=== PATIENT | female | born 1945 | race Caucasian/White ===

== ENCOUNTER 2017-02-23 13:19 | Emergency (ER) | payer MEDICARE, BC, SELFPAY | END 2017-02-23 15:46 | disposition home or self-care (01) | PROVIDERS: Emergency Provider Emergency Medicine; Visit Provider Emergency Medicine | DX: J45.901 Unspecified asthma with (acute) exacerbation (principal); I10 Essential (primary) hypertension; K21.9 Gastro-esophageal reflux disease without esophagitis; E03.9 Hypothyroidism, unspecified | CPT/HCPCS: 71020; 80053; 83605; 85025; 87040; 87070; 87430; 87804; 94640; 96361; 96365; 96367; 96375; 99285 ==

== ENCOUNTER → 2019-10-26 15:59 | Outpatient (CLI) | payer MEDICARE, SELFPAY ==
[2019-10-28 17:18] LABS: Covid-19 Nasal PCR Sendout UK Not Detected
== END ==
PROVIDERS: Visit Provider Nurse Practitioner Family
DX: Z03.818 Encounter for observation for suspected exposure to other biological agents ruled out (principal)
CPT/HCPCS: U0003

== ENCOUNTER 2020-06-25 09:13 | Observation (INO) | payer MEDICARE, SELFPAY ==
[2020-06-25] VITALS (24 sets, daily range): BP systolic 128–169; BP diastolic 67–90; PULSE 82–94; RESP 16–18; TEMP 36.8–37.2; O2SAT 76–100; BMI 28.8; BMI 29.6
--- NOTE | 2020-06-25 09:26 | ECG_ITS ---
APPROVED REPORT Exam: Resting ECG HR:89 bpm ECG Measurements Heart Rate 89 AXES TN 158 P 45 QRSd 118 QRS 94 QT 408 T 5 QTc 496 Conclusion Normal sinus rhythm Low voltage QRS Right bundle branch block Cannot rule out Inferior infarct, age undetermined Abnormal ECG Electronically signed by : Aurelio Stallings, 06/26/2020 21:20:45
--- NOTE | 2020-06-25 09:42 | CT_ITS ---
PROCEDURE INFORMATION: Exam: CT Abdomen And Pelvis Without Contrast Exam date and time: 06/25/2020 9:42 AM Age: 74 years old Clinical indication: Abdominal pain; Epigastric; Patient HX: Stomach pain with diarrhea; Additional info: Diarrhea, pain TECHNIQUE: Imaging protocol: Computed tomography of the abdomen and pelvis without contrast. Radiation optimization: All CT scans at this facility use at least one of these dose optimization techniques: automated exposure control; mA and/or kV adjustment per patient size (includes targeted exams where dose is matched to clinical indication); or iterative reconstruction. COMPARISON: ABDPEL CT abdomen pelvis w con 08/27/2018 9:19 PM FINDINGS: Mediastinal space: There is moderate size hiatal hernia. Liver: The liver is normal in appearance, without evidence of mass or intrahepatic bile duct dilatation. Gallbladder and bile ducts: The gallbladder is incompletely distended. Pancreas: There is a cystic mass in the head of the pancreas that measures approximately 4.7 x 4.9 x 4.2 cm on axial image 33 and coronal image 32. There may be a more subtle mass in the body of the pancreas that measures 1.5 cm on axial image 32. Spleen: Normal. No splenomegaly. Adrenal glands: There is a fatty mass in the right adrenal gland that measures 1.3 cm on axial image 23. There may be a fatty mass in the left adrenal gland that measures approximately 1.2 cm on axial image 25. Kidneys and ureters: There is a punctate nonobstructing calculus in the right kidney. Stomach and bowel: The terminal ileum and cecum are within normal limits. There are multiple diverticula in the descending and sigmoid colon. Appendix: No evidence of appendicitis. Intraperitoneal space: Unremarkable. No free air. No significant fluid collection. Vasculature: Unremarkable. No abdominal aortic aneurysm. Lymph nodes: Unremarkable. No enlarged lymph nodes. Urinary bladder: Unremarkable as visualized. Reproductive: Unremarkable as visualized. Bones/joints: Unremarkable. No acute fracture. Soft tissues: Unremarkable. IMPRESSION: 1. Cystic mass in the head of the pancreas, and less well-defined mass in the body of the pancreas. These findings are most concerning for primary pancreatic neoplasia. Clinical correlation is recommended. 2. Moderate size hiatal hernia. 3. Bilateral adrenal adenomas. 4. Findings were discussed with MIGUELITO HAYS at 06/25/2020 11:08 AM EDT. COMMENTS: Consistent with the [employer]'s Incidental Findings Committee white paper (J Am Katey Radiol 2017): For any incidental adrenal lesion greater than 1 cm but less than 4 cm classified in this report as benign, likely benign, or containing fat (including classification as an adenoma or myelolipoma), no follow-up imaging is recommended per consensus recommendations based on imaging criteria. Further lab evaluation could be pursued if warranted based on clinical findings.
--- NOTE | 2020-06-25 09:46 | HMH.EDNVD ---
ED Disposition Clinical Impression: Pancreatic mass Acute pancreatitis Qualifiers: Pancreatitis type: idiopathic Acute pancreatitis complication: no infection or necrosis Qualified Code(s): K85.00 - Idiopathic acute pancreatitis without necrosis or infection Disposition: Admitted As Inpatient Condition on Discharge: Fair Instructions: DI for Diarrhea and Traveler's Diarrhea -- Adult, DI for Diarrhea and Traveler's Diarrhea -- Child, DI for Nausea -- Adult, DI for Nausea -- Child Referrals: Dana Kahn APRN [Primary Care Provider] - - Critical Care Critical Care Time: No Attestation: On , the high probability of a clinically significant, sudden or life threatening deterioration of the following system(s) required my full and direct attention, intervention and personal management. The time I documented below is in addition to time spent performing reported procedures but includes the following listed in this critical care notation. Medical Decision Making - Medical Records Medical records reviewed: Yes: I reviewed the patient's medical records. - Ha[place] Inquiry Pt receiving controlled substance: Yes Ha[place] was queried for this patient: Yes Reference #:: [id number] Risks and benefits of using a controlled substance: were discussed with pt by me Vital Signs: 06/25/20 09:14 06/25/20 09:30 06/25/20 10:00 Temperature 98.3 F Temperature Source Oral Pulse Rate 93 H 85 Pulse Rate [Right] 94 H Respiratory Rate 18 Blood Pressure 144/80 H 155/81 H Blood Pressure [Right Arm] 136/88 Blood Pressure Mean 101 111 Blood Pressure Mean [Right Arm] 104 02 Sat by Pulse Oximetry 98 94 L 99 Oxygen Delivery Method Room Air 06/25/20 12:51 06/25/20 13:01 06/25/20 13:30 Temperature Temperature Source Pulse Rate 93 H 85 90 Pulse Rate [Right] Respiratory Rate 18 Blood Pressure 144/79 H 151/71 H 130/70 Blood Pressure [Right Arm] Blood Pressure Mean 111 111 100 Blood Pressure Mean [Right Arm] 02 Sat by Pulse Oximetry 95 97 93 L Oxygen Delivery Method Room Air Room Air 06/25/20 14:00 06/25/20 14:30 06/25/20 15:00 Temperature Temperature Source Pulse Rate 86 92 H 90 Pulse Rate [Right] Respiratory Rate 18 Blood Pressure 128/68 152/90 H 142/74 H Blood Pressure [Right Arm] Blood Pressure Mean 94 110 108 Blood Pressure Mean [Right Arm] 02 Sat by Pulse Oximetry 95 100 91 L Oxygen Delivery Method Room Air Room Air 06/25/20 16:00 06/25/20 16:30 06/25/20 17:00 Temperature Temperature Source Pulse Rate 88 86 91 H Pulse Rate [Right] Respiratory Rate 16 16 Blood Pressure 135/68 149/83 H 151/83 H Blood Pressure [Right Arm] Blood Pressure Mean 107 102 105 Blood Pressure Mean [Right Arm] 02 Sat by Pulse Oximetry 100 100 95 Oxygen Delivery Method - Lab Data Lab Results 06/25/20 09:56: WBC 8.2, RBC 4.07 L, Hgb 11.9 L, Hct 36.7 L, MCV 90.0, MCH 29.1, MCHC 32.4, RDW 13.3, Plt Count 127 L, MPV 9.5, Neut % (Auto) 83.6 H, Lymph % (Auto) 11.3, [place] % (Auto) 4.3, Eos % (Auto) 0.4, Baso % (Auto) 0.4, Neut # (Auto) 6.8, Lymph # (Auto) 0.9, [place] # (Auto) 0.4, Eos # (Auto) 0.0, Baso # (Auto) 0.0 06/25/20 09:56: Sodium 137, Potassium 4.3, Chloride 107, Carbon Dioxide 19 L, Anion Gap 15.3 H, BUN 25 H, Creatinine 0.80, Estimated Creat Clear 57, Estimated GFR 70, Est GFR ( Amer) 85, Glucose 107 H, Calcium 9.0, Total Bilirubin 1.3, AST 16, ALT 11 L, Alkaline Phosphatase 85, Total Protein 7.0, Albumin 3.9, Globulin 3.1, Albumin/Globulin Ratio 1.3, Lipase 461 H, TSH < 0.02 L Result diagrams: 06/25/20 09:56 06/25/20 09:56 Orders (Tests/Meds): ED MEDICATIONS Generic Name Dose Route Start Last Admin Trade Name Freq PRN Reason Stop Dose Admin Sodium Chloride 1,000 mls @ 125 mls/hr 06/25/20 15:00 Sod Chlor 0.9% 1000ml Bag IV 07/25/20 14:59 .Q8H PRESTON Sodium Chloride 8 ml 06/25/20 11:58 06/25/20 12:19 Sodium Chloride 0.9% 10ml Vial
[2020-06-25 10:10] LABS: Basophils % 0.4 % (0.1-2.0); Chloride 107 mmol/L (98-107); Eosinophils % 0.4 % (0.1-12.0); Hematocrit 36.7 % (37.0-47.0); Hemoglobin 11.9 g/dL (12.2-16.2); Lymphocytes # 0.9 K/mm3 (0.7-4.5); Lymphocytes % 11.3 % (10-50); Mean Corpuscular HGB Conc 32.4 g/dL (31.8-35.4); Mean Corpuscular Hemoglobin 29.1 pg (27.0-31.2); Mean Platelet Volume 9.5 fl (7.4-10.4); Monocytes # 0.4 K/mm3 (0.1-1.0); Monocytes % 4.3 % (1.7-9.3); Neutrophils # 6.8 K/mm3 (1.8-7.8); Neutrophils % 83.6 % (37.0-80.0); Platelet Count 127 K/mm3 (142-424); Potassium 4.3 mmoL/L (3.5-5.1); Red Blood Count 4.07 M/mm3 (4.20-5.40); Red Cell Distribution Width 13.3 % (11.5-17.5); Sodium 137 mmol/L (136-145); White Blood Count 8.2 K/mm3 (4.8-10.8)
[2020-06-25 10:13] LABS: Alanine Aminotransferase 11 U/L (12-78); Albumin Level 3.9 g/dl (3.5-5.0); Albumin/Globulin Ratio 1.3 (1.1-1.8); Alkaline Phosphatase 85 U/L (38-126); Anion Gap 15.3 mEq/L (5-15); Aspartate Amino Transferase 16 U/L (14-36); Bilirubin,Total 1.3 mg/dl (0.2-1.3); Blood Urea Nitrogen 25 mg/dl (7-17); Carbon Dioxide 19 mmol/L (22.0-30.0); Creatinine Clearance Estimated 57 mL/min (50-200); Estimated Glomerular Filt Rate 70 ml/min (>60); GFR (African American) 85 ML/MIN (>60); Globulin 3.1 g/dL (1.3-3.2); Glucose 107 mg/dl (74-100); Lipase 461 U/L (23-300)
[2020-06-25 10:45] LABS: Thyroid Stimulating Hormone < 0.02 uIU/mL (0.465-4.68)
--- NOTE | 2020-06-25 11:05 | PC.NURSE ---
Dr Matthews is on with [facility]
--- NOTE | 2020-06-25 11:58 | PC.NURSE ---
Call to [facility] , pt is to be put on waiting list.
--- NOTE | 2020-06-25 12:13 | PC.NURSE ---
Dr Matthews spoke with Dr Aragon hospitalists at
--- NOTE | 2020-06-25 16:22 | PC.NURSE ---
placed call to [facility] spoke with Hilary, she advised still no rooms and wasnt able to project any hope for jennifer.
--- NOTE | 2020-06-25 17:35 | PC.NURSE ---
Dr Stallings paged 2nd time
--- NOTE | 2020-06-25 17:36 | PC.NURSE ---
Dr Stallings on with Dr Matthews.
--- NOTE | 2020-06-25 18:33 | PC.NURSE ---
Hilary from [facility] called advising they still didnt have any beds
--- NOTE | 2020-06-25 19:55 | PC.NURSE ---
Pt arrived to the unit. Pt introduced to staff an oriented to room
--- NOTE | 2020-06-25 20:37 | PC.NURSE ---
Dr. Haylie robles
--- NOTE | 2020-06-25 20:50 | PC.NURSE ---
Dr. Stallings returned page, Report given on pt, pt does not want to take narcotics she does not like the way they make her feel, no orders for pain meds on the MAR other than morphine. Orders given for Toradol 30mg IV PRN Q6H for moderate pain, Tylenol 650mg PO PRN q6h for mild pain. Orders r/v
[2020-06-26 03:13] LABS: Microscopic, Urine URINE MICROSCOPIC (MICROSCOPIC)
[2020-06-26 03:15] LABS: Appearance,Urine CLEAR (Clear); Blood, Urine 1+ (Negative); Color,Urine YELLOW (Yellow); Glucose,Urine (UA) Negative (Negative); Ketones,Urine 2+ (Negative); Leukocyte Esterase,Urine Negative (Negative); Nitrate,Urine Negative (Negative); PH,Urine 5.5 (5.0-8.5); Protein,Urine Negative (Negative); Specific Gravity, Urine 1.025 (1.005-1.030); Urobilinogen,Urine 0.2 EU/dl (0.2)
[2020-06-26 03:28] LABS: Bilirubin,Urine Negative (Negative)
[2020-06-26 03:46] LABS: Bacteria,Urine 1+ /lpf
[2020-06-26 04:00] VITALS: BP 100/53; PULSE 69; RESP 15; TEMP 37.2; O2SAT 95
--- NOTE | 2020-06-26 04:13 | PC.NURSE ---
Pt has slept throughout this shift. Pt A&O x4, BLT lungs CTA, Bowel sounds present in all 4 quadrants. Pt port infusing well. Pt medicated for pain and nausea per MAR. Pt denies SOA, headache, or pain at this time, no edema noted in BLE
--- NOTE | 2020-06-26 06:40 | PC.NURSE ---
Lab at the bedside
[2020-06-26 07:14] LABS: Basophils % 0.9 % (0.1-2.0); Eosinophils # 0.1 K/mm3 (0.0-0.4); Eosinophils % 1.4 % (0.1-12.0); Hematocrit 31.7 % (37.0-47.0); Lymphocytes # 1.2 K/mm3 (0.7-4.5); Lymphocytes % 28.7 % (10-50); Mean Corpuscular HGB Conc 31.9 g/dL (31.8-35.4); Mean Corpuscular Hemoglobin 29.5 pg (27.0-31.2); Mean Corpuscular Volume 92.4 fl (81-99); Mean Platelet Volume 9.2 fl (7.4-10.4); Monocytes # 0.2 K/mm3 (0.1-1.0); Monocytes % 5.2 % (1.7-9.3); Neutrophils # 2.8 K/mm3 (1.8-7.8); Neutrophils % 63.8 % (37.0-80.0); Platelet Count 88 K/mm3 (142-424); Red Blood Count 3.43 M/mm3 (4.20-5.40); Red Cell Distribution Width 13.4 % (11.5-17.5); White Blood Count 4.3 K/mm3 (4.8-10.8)
[2020-06-26 07:26] LABS: Chloride 114 mmol/L (98-107); Potassium 5.1 mmoL/L (3.5-5.1); Sodium 141 mmol/L (136-145)
[2020-06-26 07:28] LABS: Blood Urea Nitrogen 23 mg/dl (7-17)
[2020-06-26 07:29] LABS: Alanine Aminotransferase 7 U/L (12-78); Albumin Level 3.1 g/dl (3.5-5.0); Albumin/Globulin Ratio 1.1 (1.1-1.8); Alkaline Phosphatase 70 U/L (38-126); Anion Gap 13.1 mEq/L (5-15); Aspartate Amino Transferase 16 U/L (14-36); Bilirubin,Total 0.9 mg/dl (0.2-1.3); Calcium 8.4 mg/dl (8.4-10.2); Carbon Dioxide 19 mmol/L (22.0-30.0); Creatinine Clearance Estimated 58 mL/min (50-200); Estimated Glomerular Filt Rate 70 ml/min (>60); GFR (African American) 85 ML/MIN (>60); Globulin 2.7 g/dL (1.3-3.2); Glucose 70 mg/dl (74-100); Total Protein,Serum 5.8 g/dl (6.3-8.2)
--- NOTE | 2020-06-26 07:42 | HMH.PHAINT ---
MEDICATION RECONCILIATION COMPLETED ON PATIENT USING EXTERNAL FILL HISTORY FROM PHARMACY. -CIRO CANALES, KIMD
--- NOTE | 2020-06-26 07:43 | HMH.PHAVTE ---
[facility] Pharmacy VTE Monitoring - Patient Demographics Admission date: 06/25/20 Report Date: 06/26/20 Time: 07:43 Allergies/Adverse Reactions: Patient Allergies amoxicillin Allergy (Severe, Verified 06/25/20 09:39) Blister midazolam [From Versed] Allergy (Verified 06/25/20 09:39) Penicillins Allergy (Verified 06/25/20 18:02) Sulfa (Sulfonamide Antibiotics) Allergy (Verified 06/25/20 09:39) Height: 1.6 m Weight: 75.807 kg Patient Problems: Current Active Problems Acute pancreatitis (Acute) Pancreatic mass (Acute) - VTE Risk Labs: VTE Related Lab Results Hgb 11.9 g/dL (12.2-16.2) L 06/25/20 09:56 Hct 31.7 % (37.0-47.0) L 06/26/20 06:47 Plt Count 88 K/mm3 (142-424) L D 06/26/20 06:47 BUN 23 mg/dl (7-17) H 06/26/20 06:47 Creatinine 0.80 mg/dl (0.52-1.04) 06/26/20 06:47 Estimated Creat Clear 58 mL/min (50-200) 06/26/20 06:47 Was VTE Risk Assessment Performed: Yes VTE Score: 7 VTE Risk Level: Moderate Risk - Prophylaxis VTE Prophylaxis Ordered?: Yes Types of VTE Prophylaxis: TEDS Knee High, Pharmacological Location of Applied Device: Bilateral Lower Extremeties Pharmacologic Type: Enoxaparin
--- NOTE | 2020-06-26 07:47 | PC.NURSE ---
Report given to Danis RN
[2020-06-26 08:00] VITALS: BP 84/64; PULSE 76; RESP 16; TEMP 36.8; O2SAT 98
--- NOTE | 2020-06-26 08:17 | PC.NURSE ---
CAlled and checked on the status of bed per Dr Stallings request. pt could possibly have a bed later this afternoon.
[2020-06-26 08:25] LABS: Hemoglobin 10.2 g/dL (12.2-16.2)
--- NOTE | 2020-06-26 08:27 | HMH.HP ---
*Admission Date: 06/25/20 *Chief complaint: Abdominal pain and vomiting *History of present illness: 74-year-old white female who is enjoyed very good functional status but also has a diagnosis of stage IV lung cancer, follows with [facility] oncology and is currently engaged in active chemotherapy. Interestingly, [facility] has known about a pancreas mass over the past several years, and has been watching this which appears to be a cystic mass and apparently they felt was noncancerous. The patient has been in a very good functional status until yesterday when she began to have significant abdominal pain that she described as going through into her left upper quadrant from her left back at the lower rib margin, accompanied with significant vomiting, poor p.o. intake, weakness, but without diarrhea, emesis of coffee grounds or blood. Came to the emergency department, labs indicated pancreatitis, CT scan showed a cystic mass that the patient and her daughter were aware of but also showed somewhat of a more shadowing mass in the tail of the pancreas that apparently is new. Admitted overnight for fluids, pain control and evaluation for possible transfer to [facility]. [facility] History I have reviewed the patient's past medical history: Yes Medical History: Reports:: Cancer, Heart Murmur Denies:: Diabetes Mellitus Type 1, Diabetes Mellitus Type 2, MRSA *Have you ever received a pneumonia vaccine?: No *Have you received a flu vaccine this season?: No Other Medical History: Reports: Arthritis, Chemotherapy, Radiation Therapy Laterality Cases: Right: Other Other Surgeries: Yes: Hysterectomy-Total Amputation: No Fractures: No - *Social History Last grade of school completed: High school graduate Smoking Status: Former smoker Alcohol Intake: never *Occupational Status:: retired *Travel in the last 8 weeks: None Family Hx:: No significant family history Review of Systems - Review of Systems Review of systems:: pertinent systems reviewed and negative unless documented below - *Neurologic Denies headache(s) Meds Home Medications Medication Instructions Recorded Confirmed Type Albuterol Sulfate [Albuterol 2 puff IH Q4HP PRN 06/25/20 06/26/20 History Sulfate Hfa] Furosemide [Furosemide 20mg Tab*] 20 mg PO DAILYP PRN 06/25/20 06/26/20 History Nivolumab [Opdivo 100mg/10mL vial] 100 mg PO MONTHLY 06/25/20 06/26/20 History Olmesartan Medoxomil [Benicar] 20 mg PO DAILY 06/26/20 06/26/20 History Allergies Allergy/AdvReac Type Severity Reaction Status Date / Time amoxicillin Allergy Severe Blister Verified 06/25/20 09:39 midazolam [From Versed] Allergy Verified 06/25/20 09:39 Penicillins Allergy Verified 06/25/20 18:02 Sulfa (Sulfonamide Allergy Verified 06/25/20 09:39 Antibiotics) Exam Vital signs and Labs for Last 24 Hours: Temp Pulse Resp BP Pulse Ox 98.3 F 76 16 84/64 L 98 06/26/20 08:00 06/26/20 08:00 06/26/20 08:00 06/26/20 08:00 06/26/20 08:00 Laboratory Results - last 24 hr 06/25/20 09:56: WBC 8.2, RBC 4.07 L, Hgb 11.9 L, Hct 36.7 L, MCV 90.0, MCH 29.1, MCHC 32.4, RDW 13.3, Plt Count 127 L, MPV 9.5, Neut % (Auto) 83.6 H, Lymph % (Auto) 11.3, [place] % (Auto) 4.3, Eos % (Auto) 0.4, Baso % (Auto) 0.4, Neut # (Auto) 6.8, Lymph # (Auto) 0.9, [place] # (Auto) 0.4, Eos # (Auto) 0.0, Baso # (Auto) 0.0 06/25/20 09:56: Sodium 137, Potassium 4.3, Chloride 107, Carbon Dioxide 19 L, Anion Gap 15.3 H, BUN 25 H, Creatinine 0.80, Estimated Creat Clear 57, Estimated GFR 70, Est GFR ( Amer) 85, Glucose 107 H, Calcium 9.0, Total Bilirubin 1.3, AST 16, ALT 11 L, Alkaline Phosphatase 85, Total Protein 7.0, Albumin 3.9, Globulin 3.1, Albumin/Globulin Ratio 1.3, Lipase 461 H, TSH < 0.02 L 06/26/20 02:50: Urine Color Yellow, Urine Appearance Clear, Urine pH 5.5, Ur Specific [place] 1.025, Urine Protein Negative, Urine Glucose (UA) Negative, Urine Ketones 2+, Urine Blood 1+, Urine Nitrate Negative, Urine Bilirub
[2020-06-26 13:08] VITALS: BP 129/65; PULSE 74; RESP 18; TEMP 37.3; O2SAT 97
[2020-06-26 16:12] VITALS: BP 130/73; PULSE 73; RESP 18; TEMP 37.3; O2SAT 100
--- NOTE | 2020-06-26 17:15 | PC.NURSE ---
no change from previous assessment, pt tolerated clear liquid diet fairly well, pt had one episode of pain approx 1.5 hours after finishing the chicken broth and yellow treated with prn torodol and pain is currently resolved, no nausea noted, bs remain active x 4 quads no distress noted will continue to monitor, daughter is at bedside
[2020-06-26 20:00] VITALS: BP 124/65; PULSE 68; RESP 17; TEMP 37.1; O2SAT 95
[2020-06-27 04:00] VITALS: BP 131/72; PULSE 64; RESP 16; TEMP 36.6; O2SAT 98
--- NOTE | 2020-06-27 04:16 | PC.NURSE ---
Pt has rested comfortably this shift. A&O x4, BLT lungs CTA, bowel sounds present in all 4 quadrants, Pt port infusing well, Pt medicated for pain and nausea this shift per MAR. TEDs in place on BLE, Pt denies SOA, headache, or nausea at this time
--- NOTE | 2020-06-27 07:01 | PC.NURSE ---
Report given to Stephen Zurita RN
[2020-06-27 07:03] LABS: Chloride 117 mmol/L (98-107); Sodium 143 mmol/L (136-145)
[2020-06-27 07:04] LABS: Potassium 4.6 mmoL/L (3.5-5.1)
[2020-06-27 07:06] LABS: Alanine Aminotransferase 11 U/L (12-78); Alkaline Phosphatase 71 U/L (38-126); Anion Gap 10.6 mEq/L (5-15); Aspartate Amino Transferase 19 U/L (14-36); Bilirubin,Total 0.7 mg/dl (0.2-1.3); Blood Urea Nitrogen 19 mg/dl (7-17); Carbon Dioxide 20 mmol/L (22.0-30.0); Creatinine Clearance Estimated 58 mL/min (50-200); Estimated Glomerular Filt Rate 70 ml/min (>60); GFR (African American) 85 ML/MIN (>60); Lipase 188 U/L (23-300)
[2020-06-27 07:07] LABS: Albumin/Globulin Ratio 1.2 (1.1-1.8); Calcium 8.3 mg/dl (8.4-10.2); Globulin 2.6 g/dL (1.3-3.2); Glucose 98 mg/dl (74-100); Total Protein,Serum 5.6 g/dl (6.3-8.2)
[2020-06-27 07:34] LABS: Basophils % 0.9 % (0.1-2.0); Eosinophils # 0.1 K/mm3 (0.0-0.4); Eosinophils % 3.2 % (0.1-12.0); Hematocrit 31.6 % (37.0-47.0); Hemoglobin 10.3 g/dL (12.2-16.2); Lymphocytes # 0.9 K/mm3 (0.7-4.5); Lymphocytes % 28.5 % (10-50); Mean Corpuscular HGB Conc 32.7 g/dL (31.8-35.4); Mean Corpuscular Hemoglobin 29.1 pg (27.0-31.2); Mean Platelet Volume 9.7 fl (7.4-10.4); Monocytes # 0.2 K/mm3 (0.1-1.0); Monocytes % 7.2 % (1.7-9.3); Neutrophils % 60.1 % (37.0-80.0); Platelet Count 91 K/mm3 (142-424); Red Blood Count 3.55 M/mm3 (4.20-5.40); Red Cell Distribution Width 13.1 % (11.5-17.5); White Blood Count 3.2 K/mm3 (4.8-10.8)
--- NOTE | 2020-06-27 07:50 | HMH.DCSUM ---
General - General Admission date:: 06/25/20 Discharge date: 06/27/20 HPI HPI: 74-year-old white female who is enjoyed very good functional status but also has a diagnosis of stage IV lung cancer, follows with [facility] oncology and is currently engaged in active chemotherapy. Interestingly, [facility] has known about a pancreas mass over the past several years, and has been watching this which appears to be a cystic mass and apparently they felt was noncancerous. The patient has been in a very good functional status until yesterday when she began to have significant abdominal pain that she described as going through into her left upper quadrant from her left back at the lower rib margin, accompanied with significant vomiting, poor p.o. intake, weakness, but without diarrhea, emesis of coffee grounds or blood. Came to the emergency department, labs indicated pancreatitis, CT scan showed a cystic mass that the patient and her daughter were aware of but also showed somewhat of a more shadowing mass in the tail of the pancreas that apparently is new. Admitted overnight for fluids, pain control and evaluation for possible transfer to [facility]. Hospital Course Hospital Course: 74-year-old female admitted for pancreatitis. Found to have new (second) lesion on her pancreas. Concerning for pancreatic cancer. In the setting of metastatic lung cancer, goal is to treat pain at this time and advance diet. She is tolerating clear liquid diet without change in her pain. This morning however has some increase in left upper quadrant pain though her labs are improved. Patient makes it very clear that she does not want anything stronger than Toradol for pain control at this time. Through shared decision-making, discussed advancing her diet, continuing Toradol, initiating bowel regimen as she has not pooped in 3 days, and planning for discharge home today. This morning went on, she did have further conversations with her daughter and decided to try a dose of Dilaudid. Received 0.5 mg of Dilaudid with great benefit. Pain resolved. Tolerated lunch without any further abdominal pain and felt comfortable going home. Plan for close follow-up with her oncologist on Tuesday as already scheduled. Afebrile, no vomiting or diarrhea. No shortness of breath. Medically stable at this time. Objective Vital signs: Temp Pulse Resp BP Pulse Ox 97.9 F 64 16 131/72 98 06/27/20 04:00 06/27/20 04:00 06/27/20 04:00 06/27/20 04:00 06/27/20 04:00 no acute distress, average body habitus - *Routine HEENT Exam Head: Present: normocephalic Eye: Present: EOMI, PERRL ENT: Present: mucous membranes moist - *Routine Neck Exam Present: supple - *Routine Respiratory Exam Present: CTA bilaterally - *Routine Cardiovascular Exam Present: RRR - *Routine Abdominal Exam Present: soft, normoactive bowel sounds, tenderness (Diffuse, worse in left upper quadrant) - *Routine Extremities Exam Absent: cyanosis, clubbing, edema - *Routine Skin Exam Present: warm. Absent: rash Results Labs on day of discharge: Labs from last 24 hours 06/27/20 06/27/20 06/26/20 06:29 06:29 06:47 WBC 3.2 L D RBC 3.55 L Hgb 10.3 L 10.2 L D Hct 31.6 L MCV 89.0 MCH 29.1 MCHC 32.7 RDW 13.1 Plt Count 91 L MPV 9.7 Neut % (Auto) 60.1 Lymph % (Auto) 28.5 [place] % (Auto) 7.2 Eos % (Auto) 3.2 Baso % (Auto) 0.9 Neut # (Auto) 2.0 Lymph # (Auto) 0.9 [place] # (Auto) 0.2 Eos # (Auto) 0.1 Baso # (Auto) 0.0 Sodium 143 Potassium 4.6 Chloride 117 H Carbon Dioxide 20 L Anion Gap 10.6 BUN 19 H Creatinine 0.80 Estimated Creat Clear 58 Estimated GFR 70 Est GFR ( Amer) 85 Glucose 98 D Calcium 8.3 L Total Bilirubin 0.7 AST 19 ALT 11 L D Alkaline Phosphatase 71 Total Protein 5.6 L Albumin 3.0 L Globulin 2.6 Albumin
--- NOTE | 2020-06-27 08:39 | PC.NURSE ---
Dr. Downing at discussing POC with pt.l
[2020-06-27 08:40] VITALS: BP 158/83; PULSE 67; RESP 17; TEMP 37.4; O2SAT 97
--- NOTE | 2020-06-27 09:00 | PC.NURSE ---
Dr. Downing notified of pt having a low grade temp and increase in pain. V/U. States that he will order her something.
[2020-06-27 09:36] VITALS: O2SAT 97
--- NOTE | 2020-06-27 15:00 | PC.NURSE ---
IV FLUIDS AND PORT ACCESS DISCONTINUED. TOLERATED WELL.
== END 2020-06-27 15:30 | disposition home or self-care (01) ==
LOC: ER 17:40 → 2ND 19:53 → OB 19:53
PROVIDERS: Internal Medicine Adolescent Medicine; Admitting Provider Internal Medicine Adolescent Medicine; Emergency Provider Emergency Medicine; PCP Nurse Practitioner; Visit Provider Internal Medicine Adolescent Medicine
DX: K85.90 Acute pancreatitis without necrosis or infection, unspecified (principal); C34.90 Malignant neoplasm of unspecified part of unspecified bronchus or lung; K85.00 Idiopathic acute pancreatitis without necrosis or infection; Z88.0 Allergy status to penicillin; Z88.2 Allergy status to sulfonamides; Z88.8 Allergy status to other drugs, medicaments and biological substances; Z87.891 Personal history of nicotine dependence; R11.10 Vomiting, unspecified; K86.9 Disease of pancreas, unspecified; E86.0 Dehydration; Z91.09 Other allergy status, other than to drugs and biological substances; R19.7 Diarrhea, unspecified; R19.8 Other specified symptoms and signs involving the digestive system and abdomen
CPT/HCPCS: 74176; 80053; 81001; 83690; 84443; 85025; 93005; 96366; 96374; 99284; G0378; J2405; U0003

== ENCOUNTER → 2021-01-15 12:21 | Outpatient (CLI) | payer MEDICARE, SELFPAY | PROVIDERS: Visit Provider Nurse Practitioner | DX: Z20.822 Contact with and (suspected) exposure to COVID-19 (principal) | CPT/HCPCS: C9803; U0003; U0005 ==

== ENCOUNTER 2022-02-22 09:42 | Emergency (ER) | payer MEDICARE, SELFPAY ==
[2022-02-22 09:46] VITALS: BP 132/61; PULSE 87; RESP 18; TEMP 37.6; O2SAT 99; BMI 23.3
--- NOTE | 2022-02-22 09:54 | PC.NURSE ---
ER at ; family at
[2022-02-22 10:00] VITALS: BP 120/64; O2SAT 99
--- NOTE | 2022-02-22 10:01 | XR_ITS ---
PROCEDURE INFORMATION: Exam: XR Chest Exam date and time: 02/22/2022 10:25 AM Age: 76 years old Clinical indication: Cough and shortness of breath; Additional info: Cough, chest pain TECHNIQUE: Imaging protocol: Radiologic exam of the chest. Views: 1 view. COMPARISON: CR CXR CHEST(2 VIEWS-NOT PORTABLE) 02/23/2017 2:10 PM FINDINGS: Tubes, catheters and devices: Tunneled right-sided central venous catheter is well positioned with the tip superimposed upon the mid superior vena cava. Lungs: No consolidation or lung nodules. Pleural spaces: No pleural effusion. No pneumothorax. Heart/Mediastinum: Small hiatal hernia. Heart size is near the upper limits of normal. Bones/joints: No fractures or bone lesions. IMPRESSION: 1. No acute pulmonary disease. No change since 02/23/2017. 2. Borderline cardiomegaly. 3. Small hiatal hernia.
--- NOTE | 2022-02-22 10:01 | HMH.EDGENADL ---
Discharge Plan Disposition Patient Disposition: Home, Self-Care Chief Complaint: Weakness Prescriptions Prescriptions: No Action furosemide 20 MG tablet 20 mg PO DAILYP PRN (Reason: Edema) albuterol sulfate 8.5 GM HFA aerosol inhaler 2 puff IH Q4HP PRN (Reason: Shortness Of Breath) nivolumab 100 MG/10 ML solution 100 mg PO MONTHLY Rx Instructions: olmesartan 20 MG tablet 20 mg PO DAILY ketorolac 10 MG tablet 10 mg PO Q6HP MDD 40mg/day PRN (Reason: Breakthru Severe Pain) 5 Days Qty: 20 0RF Rx Instructions: Therapy initiated with IV/IM dose while inpatient. No anaphylaxis or reaction Referrals Follow up/Referrals: Provider,Referral, MD [Primary Care Provider] - See instructions Activity Restrictions/Add. Instructions Additional Instructions/Restrictions: At this point it was felt you are safe to be discharged home. If new or worsening symptoms please not hesitate to return for continued evaluation. Please follow-up with your family doctor in the coming days for repeat clinical evaluation. Clinical Impressions Clinical Impression: COVID-19 Discharge ED Provider: Fidel Villagomez General Adult HPI General Chief complaint: Weakness Stated complaint: Fever,Sore throat,Headache Time Seen by Provider: 02/22/22 10:01 Mode of Arrival: Wheelchair Source of Information: Patient Limitations: No Limitations Description of Symptoms (Recalled from ER Triage Doc. by RN): Pt reports generalized weakness, sore throat, headache, fever, nausea that began yesterday. Pt was dizzy upon getting up from the wheelchair here in the ER. History of Present Illness HPI narrative: Patient is a 76-year-old female with past medical history of pancreatic cancer status post Whipple on monthly immunotherapy who presents emergency department for evaluation of weakness. Onset was acute, occurring over the last 24 hours. Patient has bifrontal headache without photophobia, no vomiting, intermittent fleeting chest pain, denies abdominal pain. Family member at bedside is concerned about weakness as she is using the rogers to hold herself up when she walks. No falls or trauma. Patient is supposed to ambulate with a cane which she has not been using. Patient has had a fever of 101 at home, no medicines administered prior to arrival. No other acute complaints at this time. Sick contact with possible [id number]-mouth. Related Data Home Medications Medication Instructions Recorded Confirmed albuterol sulfate 90 mcg/actuation 2 puff IH Q4HP PRN Shortness Of 06/25/20 06/26/20 aerosol inhaler Breath furosemide 20 mg tablet 20 mg PO DAILYP PRN Edema 06/25/20 06/26/20 nivolumab 100 mg/10 mL intravenous 100 mg PO MONTHLY IMMUNOTHERAPY 06/25/20 06/26/20 solution olmesartan 20 mg tablet 20 mg PO DAILY Hypertension 06/26/20 06/26/20 Previous Rx's Medication Instructions Recorded ketorolac 10 mg tablet 10 mg PO Q6HP PRN Breakthru Severe 06/27/20 Pain 5 days #20 tabs Allergies Allergy/AdvReac Type Severity Reaction Status Date / Time amoxicillin Allergy Severe Blister Verified 06/25/20 09:39 midazolam [From Versed] Allergy Verified 06/25/20 09:39 Penicillins Allergy Verified 06/25/20 18:02 Sulfa (Sulfonamide Allergy Verified 06/25/20 09:39 Antibiotics) [facility] Disclaimer: The information contained in this section may have been updated after the patient was seen, as this information can be updated by other users. Social History Smoking Status: Former smoker alcohol intake: never current occupational status: retired Travel in the last 8 weeks: None caffeine: No ROS Obtained: Yes Systems reviewed as appropriate & no additional complaints except as documented Physical Exam General General appearance: alert and in no apparent distress Head Head exam: atraumatic and normocephalic Eye Eye exam: Present PERRL and EOMI ENT ENT exam: Present mucous membranes
--- NOTE | 2022-02-22 10:27 | ECG_ITS ---
APPROVED REPORT Exam: Resting ECG HR:75 bpm ECG Measurements Heart Rate [address] 178 P 66 QRSd 136 QRS 127 QT 396 T 14 QTc 425 Conclusion SINUS RHYTHM RIGHT BUNDLE BRANCH BLOCK [120+ ms QRS DURATION, UPRIGHT V1, 40+ ms S IN I/aVL/V4/V5/V6] LEFT POSTERIOR FASCICULAR BLOCK [QRS AXIS > 109, INFERIOR Q] ABNORMAL ECG UNCONFIRMED REPORT Electronically signed by : Aurelio Stallings MD 02/23/2022 20:15:27
[2022-02-22 10:38] VITALS: BP 127/69; PULSE 77; O2SAT 99
[2022-02-22 10:41] LABS: Basophils # 0.1 K/mm3 (0-0.2); Basophils % 0.9 % (0.1-2.0); Eosinophils % 0.1 % (0.1-12.0); Hematocrit 32.9 % (37.0-47.0); Hemoglobin 11.4 g/dL (12.2-16.2); Lymphocytes # 0.9 K/mm3 (0.7-4.5); Lymphocytes % 15.3 % (10-50); Mean Corpuscular HGB Conc 34.6 g/dL (31.8-35.4); Mean Corpuscular Volume 86.8 fl (81-99); Mean Platelet Volume 9.7 fl (7.4-10.4); Monocytes # 0.4 K/mm3 (0.1-1.0); Monocytes % 7.6 % (1.7-9.3); Neutrophils # 4.4 K/mm3 (1.8-7.8); Neutrophils % 76.1 % (37.0-80.0); Platelet Count 125 K/mm3 (142-424); Red Blood Count 3.79 M/mm3 (4.20-5.40); Red Cell Distribution Width 13.8 % (11.5-17.5); White Blood Count 5.8 K/mm3 (4.8-10.8)
[2022-02-22 10:42] LABS: Chloride 110 mmol/L (98-107); Sodium 140 mmol/L (136-145)
[2022-02-22 10:45] LABS: Alanine Aminotransferase 18 U/L (12-78); Albumin Level 3.6 g/dl (3.5-5.0); Albumin/Globulin Ratio 1.6 (1.1-1.8); Alkaline Phosphatase 99 U/L (38-126); Aspartate Amino Transferase 21 U/L (14-36); Bilirubin,Total 1.5 mg/dl (0.2-1.3); Blood Urea Nitrogen 19 mg/dl (7-17); Carbon Dioxide 24 mmol/L (22.0-30.0); Creatinine Clearance Estimated 45 mL/min (50-200); Estimated Glomerular Filt Rate 61 ml/min (>60); GFR (African American) 73 ML/MIN (>60); Globulin 2.3 g/dL (1.3-3.2); Total Protein,Serum 5.9 g/dl (6.3-8.2)
[2022-02-22 10:46] LABS: Calcium 8.4 mg/dl (8.4-10.2); Glucose 94 mg/dl (74-100); Lactic Acid 0.7 mmol/L (0.7-2.1); Magnesium 1.8 mg/dl (1.6-2.3)
[2022-02-22 10:49] LABS: Strep Scrn Group A (Rapid) Negative (Negative)
--- NOTE | 2022-02-22 10:50 | PC.NURSE ---
notified ER of critical potassium result
[2022-02-22 11:02] LABS: Troponin I < 0.01 ng/ml (0.00-0.034)
[2022-02-22 11:36] LABS: Influenza A, PCR Not Detected (NotDetected); Influenza B, PCR Not Detected (NotDetected)
--- NOTE | 2022-02-22 12:08 | PC.NURSE ---
per lab pt covid swab has approx 14 minutes left until result. notified ER
[2022-02-22 12:22] LABS: Coronavirus 19, PCR Detected (NotDetected)
[2022-02-22 13:02] VITALS: BP 110/55; PULSE 76; RESP 18; TEMP 37.6; O2SAT 99
== END 2022-02-22 13:02 | disposition home or self-care (01) ==
PROVIDERS: Emergency Provider Emergency Medicine
DX: Z51.12 Encounter for antineoplastic immunotherapy (principal); U07.1 COVID-19; R42 Dizziness and giddiness; R07.9 Chest pain, unspecified; R06.02 Shortness of breath; R50.9 Fever, unspecified; E87.6 Hypokalemia; R11.0 Nausea; R51.9 Headache, unspecified; I45.10 Unspecified right bundle-branch block; Z79.51 Long term (current) use of inhaled steroids; Z79.899 Other long term (current) drug therapy; Z88.0 Allergy status to penicillin; Z88.1 Allergy status to other antibiotic agents; Z88.2 Allergy status to sulfonamides; Z88.3 Allergy status to other anti-infective agents; Z88.8 Allergy status to other drugs, medicaments and biological substances; Z85.07 Personal history of malignant neoplasm of pancreas; Z87.891 Personal history of nicotine dependence
CPT/HCPCS: 71045; 80053; 83605; 83735; 84484; 85025; 87430; 93005; 96361; 96374; 99285; C9803; U0003; U0005

== ENCOUNTER 2022-09-08 15:59 | Emergency (ER) | payer MEDICARE, SELFPAY ==
[2022-09-08 16:00] VITALS: BP 168/81; PULSE 104; RESP 17; TEMP 36.7; O2SAT 96; BMI 25.0
--- NOTE | 2022-09-08 16:08 | XR_ITS ---
PROCEDURE INFORMATION: Exam: XR Right Ankle Exam date and time: 09/08/2022 4:18 PM Age: 76 years old Clinical indication: Injury or trauma; Fall; Blunt trauma; Ankle; Right; Additional info: Pain from rolling ankle TECHNIQUE: Imaging protocol: Radiologic exam of the right ankle. Views: 3 or more views. COMPARISON: No relevant prior studies available. FINDINGS: Bones/joints: No fractures, dislocations, or focal bone lesions. Joint spaces are well preserved. Small plantar and Achilles heel spurs. Soft tissues: No soft tissue gas, radiopaque foreign bodies, or masses. IMPRESSION: No acute findings in the right ankle.
--- NOTE | 2022-09-08 16:49 | HMH.EDGENADL ---
Discharge Plan Disposition Patient Disposition: Home, Self-Care Condition: Good Chief Complaint: Extremity Injury, Lower Prescriptions Prescriptions: No Action furosemide 20 MG tablet 20 mg PO DAILYP PRN (Reason: Edema) albuterol sulfate 8.5 GM HFA aerosol inhaler 2 puff IH Q4HP PRN (Reason: Shortness Of Breath) nivolumab 100 MG/10 ML solution 100 mg PO MONTHLY Rx Instructions: olmesartan 20 MG tablet 20 mg PO DAILY ketorolac 10 MG tablet 10 mg PO Q6HP MDD 40mg/day PRN (Reason: Breakthru Severe Pain) 5 Days Qty: 20 0RF Rx Instructions: Therapy initiated with IV/IM dose while inpatient. No anaphylaxis or reaction Referrals Follow up/Referrals: Dana Kahn APRN [Primary Care Provider] - See instructions Activity Restrictions/Add. Instructions Additional Instructions/Restrictions: Activity as tolerated. [id number] medication for aches and pains. Clinical Impressions Clinical Impression: Ankle sprain and strain Discharge ED Provider: Aba Otero General Adult HPI General Chief complaint: Extremity Injury, Lower Stated complaint: AO 09/08 0900, fall RT foot injury Time Seen by Provider: 09/08/22 16:11 Mode of Arrival: Ambulatory Source of Information: Patient Limitations: No Limitations Description of Symptoms (Recalled from ER Triage Doc. by RN): 76 F presents from home after she twisted her right ankle in the garden. Patient reports she just twisted around and it rolled her ankle. CMS intact. Slight swelling noted, pain on palpation. Patient was ambulatory to ER. History of Present Illness HPI narrative: 76yo F presents to the ER after a ground-level fall. Complains of pain in her right ankle. Denies head strike or LOC. Related Data Home Medications Medication Instructions Recorded Confirmed albuterol sulfate 90 mcg/actuation 2 puff IH Q4HP PRN Shortness Of 06/25/20 06/26/20 aerosol inhaler Breath furosemide 20 mg tablet 20 mg PO DAILYP PRN Edema 06/25/20 06/26/20 nivolumab 100 mg/10 mL intravenous 100 mg PO MONTHLY IMMUNOTHERAPY 06/25/20 06/26/20 solution olmesartan 20 mg tablet 20 mg PO DAILY Hypertension 06/26/20 06/26/20 Previous Rx's Medication Instructions Recorded ketorolac 10 mg tablet 10 mg PO Q6HP PRN Breakthru Severe 06/27/20 Pain 5 days #20 tabs Allergies Allergy/AdvReac Type Severity Reaction Status Date / Time amoxicillin Allergy Severe Blister Verified 06/25/20 09:39 midazolam [From Versed] Allergy Verified 06/25/20 09:39 Penicillins Allergy Verified 06/25/20 18:02 Sulfa (Sulfonamide Allergy Verified 06/25/20 09:39 Antibiotics) [facility] Disclaimer: The information contained in this section may have been updated after the patient was seen, as this information can be updated by other users. Social History Smoking Status: Never smoker alcohol intake: never current occupational status: retired Travel in the last 8 weeks: None caffeine: No ROS Obtained: Yes Systems reviewed as appropriate & no additional complaints except as documented Physical Exam General General appearance: alert and in no apparent distress Head Head exam: atraumatic Eye Eye exam: Present normal appearance and PERRL; Absent scleral icterus Neck Neck exam: Present full ROM and trachea midline; Absent tenderness Respiratory Respiratory exam: Absent respiratory distress Cardiovascular Cardiovascular exam: Present regular rate and normal rhythm Abdominal Exam Abdominal exam: Present soft Expanded Lower Extremity Exam Right: Upper leg exam: Present normal inspection; Absent tenderness Knee exam: Present normal inspection and full ROM; Absent tenderness Lower leg exam: Present full ROM, tenderness (Proximal lower leg) and ecchymosis (Proximal lower leg) Ankle exam: Present tenderness (Lateral malleolus) and swelling (Lateral malleo
[2022-09-08 17:00] VITALS: BP 131/79; PULSE 98; RESP 18; TEMP 36.6; O2SAT 100
== END 2022-09-08 17:00 | disposition home or self-care (01) ==
PROVIDERS: Emergency Provider Family Medicine; PCP Nurse Practitioner
DX: S93.401A Sprain of unspecified ligament of right ankle, initial encounter (principal); S96.911A Strain of unspecified muscle and tendon at ankle and foot level, right foot, initial encounter; X50.1XXA Overexertion from prolonged static or awkward postures, initial encounter; C80.1 Malignant (primary) neoplasm, unspecified
CPT/HCPCS: 73610; 99283; 99284

== ENCOUNTER 2023-04-18 17:53 | Emergency (ER) | payer MEDICARE, SELFPAY ==
[2023-04-18 18:05] VITALS: BP 128/65; PULSE 66; RESP 21; TEMP 37.1; O2SAT 95; BMI 22.1
--- NOTE | 2023-04-18 18:14 | ED_ITS ---
Discharge Plan Disposition Patient Disposition: Home, Self-Care Condition: Good Prescriptions Prescriptions: New azithromycin [Zithromax] 250 mg tablet 250 mg PO UD DOSE PK Qty: 6 0RF Rx Instructions: Take two (2) tablets today, then one (1) tablet days #2 thru #5 benzonatate [benzonatate] 100 mg capsule 100 mg PO TIDP PRN (Reason: Cough) Qty: 30 0RF No Action furosemide 20 MG tablet 20 mg PO DAILYP PRN (Reason: Edema) olmesartan 20 MG tablet 20 mg PO DAILY Referrals Follow up/Referrals: Dana Kahn APRN [Primary Care Provider] - See instructions Activity Restrictions/Add. Instructions Additional Instructions/Restrictions: Drink plenty of fluids. Take tylenol for pain or fever. Take the medications as directed. Follow up with your regular doctor. GO TO THE ER FOR ANY WORSENING SYMPTOMS Clinical Impressions Clinical Impression: Acute viral syndrome, Pharyngitis Instructions Patient Instructions: DI for Pharyngitis/Tonsillopharyngitis -- Adult, DI for Viral Syndrome Discharge ED Provider: Grant Troncoso [facility] General Stated complaint: fever, cough, congestion, sore throat Time Seen by Provider: 04/18/23 18:14 History of Present Illness Provider Complaint: She states that for the past 2 days she has had chills, malaise, sore throat, sinus congestion and a cough. Related Data Home Medications Medication Instructions Recorded Confirmed furosemide 20 mg tablet 20 mg PO DAILYP PRN Edema 06/25/20 04/18/23 olmesartan 20 mg tablet 20 mg PO DAILY Hypertension 06/26/20 04/18/23 Previous Rx's Medication Instructions Recorded azithromycin 250 mg tablet 250 mg PO UD DOSE PK #6 tabs 04/18/23 (Zithromax) benzonatate 100 mg capsule 100 mg PO TIDP PRN Cough #30 caps 04/18/23 Allergies Allergy/AdvReac Type Severity Reaction Status Date / Time amoxicillin Allergy Severe Blister Verified 06/25/20 09:39 clavulanic acid Allergy Verified 04/18/23 18:18 [From Augmentin] fentanyl Allergy Verified 04/18/23 18:18 midazolam [From Versed] Allergy Verified 06/25/20 09:39 mupirocin [From Bactroban] Allergy Verified 04/18/23 18:18 Penicillins Allergy Verified 06/25/20 18:02 Sulfa (Sulfonamide Allergy Verified 06/25/20 09:39 Antibiotics) [facility] Disclaimer: The information contained in this section may have been updated after the patient was seen, as this information can be updated by other users. Social History Smoking Status: Never smoker alcohol intake: never current occupational status: retired Travel in the last 8 weeks: None caffeine: No ROS Obtained: Yes All systems reviewed & no additional complaints except as documented Constitutional Constitutional: Reports chills and Reports fever(s) Eyes Eyes: Denies eye discharge ENT Ears, Nose, Mouth, and Throat: Reports as per HPI Cardiovascular Cardiovascular: Denies chest pain Respiratory Respiratory: Denies chest congestion and Reports cough Gastrointestinal Gastrointestingal: Reports nausea; Denies abdominal pain, constipation, cramping, diarrhea or vomiting Musculoskeletal Musculoskeletal: Denies arthralgias Integumentary/Breasts Skin/Breast: Denies rash Neurologic Neurologic: Denies paresthesias Physical Exam General General appearance: alert and in no apparent distress Head Head exam: atraumatic, normocephalic and normal inspection Eye Eye exam: Present normal appearance, PERRL and EOMI ENT ENT exam: Present mucous membranes moist and normal external ear exam Expanded ENT Exam TM/Canal exam: Bilateral TM: erythema and bulging Nose exam: Absent sinus tenderness Mouth exam: Present normal external inspection; Absent drooling Teeth exam: Present normal inspection Throat exam: Present tonsillar erythema, tonsillomegaly and tonsillar exudate Neck Neck exam: Present normal inspection, full ROM and trachea midline; Absent tenderness, meningismus or lymphadenopathy Chest Chest inspection: Present normal inspection and symmetric chest wall rise; Absent tenderness Respiratory Respiratory exam: Present normal lung sounds bilaterally; Absent respiratory distress, wheezes or stridor Cardiovascular Cardiovascular exam: Present regular rate and normal rhythm; Absent systolic murmur or diastolic murmur Abdominal Exam Abdominal exam: Present soft and normal bowel sounds; Absent distention, tenderness, guarding, rebound or rigidity Extremities Exam Extremities exam: Present normal inspection and normal capillary refill; Absent calf tenderness Back Exam Back exam: Present normal inspection and full ROM; Absent tenderness, CVA tenderness (R) or CVA tenderness (L) Neurological Exam Neurological exam: Present alert, oriented X3 and CN II-XII intact Psychiatric Psychiatric exam: Present normal affect and normal mood Skin Skin exam: Present warm, dry, intact and normal color Medical Decision Making Medical Records Medical records reviewed: No I reviewed the patient's medical records. [place] Inquiry Pt receiving controlled substance: No Lab Data Lab results reviewed: Yes I reviewed the patient's lab results.
[2023-04-18 18:27] LABS: UTC Influenza A Antigen Negative (Negative)
[2023-04-18 18:28] LABS: UTC Influenza B Antigen Negative (Negative)
[2023-04-18 18:40] VITALS: BP 128/65; PULSE 66; RESP 21; TEMP 37.1; O2SAT 95
[2023-04-18 18:49] LABS: Adenovirus,PCR Not Detected (NotDetected); Coronavirus 229E Not Detected (NotDetected); Coronavirus NL63 Not Detected (NotDetected); Coronavirus OC43 Not Detected (NotDetected); Coronovirus HKU1,PCR Not Detected (NotDetected); Human Metapneumovirus Not Detected (NotDetected); Influenza A, PCR Not Detected (NotDetected); Influenza AH1, 2009 Not Detected (NotDetected); Influenza AH1, PCR Not Detected (NotDetected); Influenza AH3,PCR Not Detected (NotDetected); Influenza B, PCR Not Detected (NotDetected); Parainfluenza 1, PCR Not Detected (NotDetected); Parainfluenza 2, PCR Not Detected (NotDetected); Parainfluenza 3, PCR Not Detected (NotDetected); Parainfluenza 4, PCR Not Detected (NotDetected); Respiratory Syncytial Virus Not Detected (NotDetected); Rhinovirus/Enterovirus Not Detected (NotDetected)
[2023-04-18 23:47] LABS: Coronavirus 19, PCR Detected (NotDetected)
== END 2023-04-18 18:42 | disposition home or self-care (01) ==
PROVIDERS: Emergency Provider Nurse Practitioner Family; PCP Nurse Practitioner
DX: U07.1 COVID-19 (principal); J02.9 Acute pharyngitis, unspecified; R50.9 Fever, unspecified; R05.9 Cough, unspecified; R09.81 Nasal congestion
CPT/HCPCS: 87632; 87635; 87804; 99204; 99212; G0463